=== PATIENT | male | born 1950 | race Two or more races ===

== ENCOUNTER 2025-01-09 19:45 | Inpatient (IN) | payer MEDICARE, OTHER ==
[~2025-01-09] VITALS: Ht 162.6 cm; Wt 72.7 kg
[~2025-01-09 19:45] MED LIST: ASPI-1450 PO; ATOR20TA65 PO; LEVE-71 PO; LEVO-72 PO
[2025-01-09 20:27] LABS: BASOPHILS % (AUTO) 0.6 % (0.0-2.0); EOSINOPHILS % (AUTO) 3.2 % (1.0-6.0); HEMATOCRIT 40.7 % (41-53); HEMOGLOBIN 13.8 g/dL (13.5-17.5); LYMPHOCYTES # (AUTO) 1.8 K/uL (1.0-4.8); LYMPHOCYTES % (AUTO) 25.5 % (22.0-44.0); MEAN CORPUSCULAR HEMOGLOBIN 30.6 pg (26.0-34.0); MEAN CORPUSCULAR VOLUME 90 fL (80-100); MONOCYTES # (AUTO) 0.4 K/uL (0.1-1.0); MONOCYTES % (AUTO) 5.7 % (2.0-9.0); NEUTROPHILS # (AUTO) 4.7 K/uL (1.8-7.7); PLATELET COUNT (AUTO) 124 K/uL (150-450); RED BLOOD CELL COUNT(AUTO) 4.52 MIL/uL (4.50-5.90); RED CELL DISTRIBUTION WIDTH 14.5 % (11.5-14.5); WHITE BLOOD COUNT (AUTO) 7.2 K/uL (4.5-11.0)
[2025-01-09] MEDS: SODIUM CHLORIDE 0.9% 1,000 ML IV ONE (20:34)
[2025-01-09] MEDS ORDERED: INSU100I26 SQ (20:36)
[2025-01-09] MEDS ORDERED: DULA0.75 SQ (20:36)
[2025-01-09] MEDS ORDERED: TAMS0.4C94 PO (20:36)
[2025-01-09] MEDS ORDERED: METF-446 PO (20:36)
[2025-01-09] MEDS ORDERED: CHOL200059 PO (20:36)
[2025-01-09] MEDS ORDERED: CARV25TA32 PO (20:36)
[2025-01-09] MEDS ORDERED: FINA5TAB41 PO (20:36)
[2025-01-09 20:37] LABS: ANION GAP 8 mmol/L (8-16); CALCIUM, TOTAL 8.9 mg/dL (8.8-10.5); CARBON DIOXIDE 29 mmol/L (22-29); CHLORIDE 108 mmol/L (98-107); CREATININE 0.92 mg/dL (0.60-1.30); GLOMERULAR FILTR. RATE CALC > 60 mL/min (>60); GLUCOSE,RANDOM 91 mg/dL (70-110); POTASSIUM 4.3 mmol/L (3.5-5.1); SODIUM SERUM 145 mmol/L (136-145); UREA NITROGEN, BLOOD 17 mg/dL (7-18)
[2025-01-09 20:41] LABS: ALBUMIN 3.3 g/dL (3.4-5.0); BILIRUBIN,DIRECT 0.1 mg/dL (0.00-0.20); BILIRUBIN,TOTAL 0.3 mg/dL (0.1-1.0); TOTAL PROTEIN, SERUM 6.6 g/dL (6.4-8.2)
[2025-01-09 20:46] LABS: CREATINE KINASE, TOTAL ONLY 37 U/L (39-308)
[2025-01-09 20:47] LABS: TROPONIN I-HIGH SENSITIVITY 4 ng/L (<76)
[2025-01-09 20:50] LABS: LACTIC ACID 2.4 mmol/L (0.4-2.0)
[2025-01-09] MEDS: SODIUM CHLORIDE 0.9% 1,450 ML IV ONE (21:24)
[2025-01-09] MEDS: CEFEPIME HCL 2 GM in DEXTROSE 5%-WATER 50 ML IV ONE (21:25)
[2025-01-09] MEDS: VANCOMYCIN 1.5 GM/WATER(PEG) 300 ML IV ONE (21:32)
[2025-01-09] MEDS: DEXTROSE 50%-WATER 25 GM/50 ML SYRINGE IVP ONE (21:49)
[2025-01-09] MEDS ORDERED: ACETAMINOPHEN 325 MG TABLET PO PRN (22:00)
[2025-01-09] MEDS ORDERED: ALBUTEROL SULFATE 2.5 MG/0.5 ML NEB SOLUTION NEB PRN (22:00)
[2025-01-09] MEDS ORDERED: IPRATROPIUM BROMIDE 0.5 MG/2.5 ML NEB SOLUTION NEB PRN (22:00)
[2025-01-09] MEDS ORDERED: ONDANSETRON HCL 4 MG/2 ML VIAL IVP PRN (22:00)
[2025-01-09 22:27] LABS: APPEARANCE,URINE CLEAR (CLEAR); BILIRUBIN,URINE NEGATIVE (NEGATIVE); COLOR,URINE LIGHT YELLOW (YELLOW); GLUCOSE, URINE (UA) TRACE mg/dL (NEGATIVE); KETONES,URINE NEGATIVE (NEGATIVE); LEUKOCYTE ESTERASE ,URINE MODERATE (NEGATIVE); NITRATE,URINE POSITIVE (NEGATIVE); OCCULT BLOOD,URINE NEGATIVE (NEGATIVE); PH,URINE 5.5 (5.0-8.0); PH,URINE DRUG SCREEN 5.5 (5.0-8.0); PROTEIN,URINE NEGATIVE (NEGATIVE); UROBILINOGEN,URINE <=1.0 mg/dL (<=1.0)
[2025-01-09 22:33] LABS: ALCOHOL, URINE DRUG SCREEN NEGATIVE (NEGATIVE); AMPHET/METH SCREEN,URINE NEGATIVE (NEGATIVE); BARBITURATE SCREEN, URINE NEGATIVE (NEGATIVE); BENZODIAZEPINES SCREEN,URINE NEGATIVE (NEGATIVE); CANNABINOID SCREEN,URINE NEGATIVE (NEGATIVE); COCAINE SCREEN,URINE NEGATIVE (NEGATIVE); METHADONE SCREEN, URINE NEGATIVE (NEGATIVE); OPIATE SCREEN,URINE NEGATIVE (NEGATIVE); PHENCYCLIDINE SCREEN,URINE NEGATIVE (NEGATIVE)
[2025-01-09 22:46] LABS: RBC,URINE 0-2 /HPF (0-2)
[2025-01-09 22:47] LABS: BACTERIA,URINE Rare /HPF (None Seen); SQUAMOUS EPITHELIAL CELL,UR Rare /LPF (None Seen)
[2025-01-09] MEDS ORDERED: IOHEXOL 350 MG/ML 100 ML VIAL ONE (22:51)
[2025-01-09] MEDS: HEPARIN SODIUM,PORCINE 5,000 UNITS/ML VIAL SQ SCH (23:07)
[2025-01-09] MEDS: SODIUM CHLORIDE 0.9% 500 ML IV ONE (23:25)
[2025-01-10 00:51] LABS: GLUCOMETER DEV NAME(LOC) 5N.2C; GLUCOSE,POINT OF CARE 75 MG/DL (70-110)
[2025-01-10 01:23] VITALS: BP 102/62; PULSE 56; RESP 19; TEMP 98.1; O2SAT 100
[2025-01-10 02:50] LABS: TROPONIN I-HIGH SENSITIVITY 5 ng/L (<76)
[2025-01-10 03:54] VITALS: BP 99/60; PULSE 56; RESP 18; TEMP 98.4; O2SAT 99
[2025-01-10] MEDS: DEXTROSE 5%-LACTATED RINGERS 1,000 ML IV ONE ×2 (06:05→13:05)
[2025-01-10 06:30] LABS: GLUCOMETER DEV NAME(LOC) 5N.2C; GLUCOSE,POINT OF CARE 44 MG/DL (70-110)
[2025-01-10 07:06] LABS: GLUCOMETER DEV NAME(LOC) 5N.2C; GLUCOSE,POINT OF CARE 160 MG/DL (70-110)
[2025-01-10 07:49] VITALS: BP 99/59; PULSE 57; RESP 18; TEMP 98; O2SAT 97
[2025-01-10 08:12] LABS: BASOPHILS % (AUTO) 0.3 % (0.0-2.0); EOSINOPHILS % (AUTO) 3.6 % (1.0-6.0); HEMATOCRIT 37.8 % (41-53); HEMOGLOBIN 12.8 g/dL (13.5-17.5); LYMPHOCYTES # (AUTO) 1.8 K/uL (1.0-4.8); LYMPHOCYTES % (AUTO) 29.8 % (22.0-44.0); MEAN CORPUSCULAR HEMOGLOBIN 30.7 pg (26.0-34.0); MEAN CORPUSCULAR VOLUME 90 fL (80-100); MONOCYTES # (AUTO) 0.4 K/uL (0.1-1.0); MONOCYTES % (AUTO) 5.9 % (2.0-9.0); NEUTROPHILS # (AUTO) 3.7 K/uL (1.8-7.7); NEUTROPHILS % (AUTO) 60.4 % (40.0-70.0); PLATELET COUNT (AUTO) 114 K/uL (150-450); RED BLOOD CELL COUNT(AUTO) 4.18 MIL/uL (4.50-5.90); RED CELL DISTRIBUTION WIDTH 14.4 % (11.5-14.5); WHITE BLOOD COUNT (AUTO) 6.2 K/uL (4.5-11.0)
[2025-01-10 08:25] LABS: ANION GAP 10 mmol/L (8-16); CALCIUM, TOTAL 8.3 mg/dL (8.8-10.5); CARBON DIOXIDE 26 mmol/L (22-29); CHLORIDE 110 mmol/L (98-107); CREATININE 0.85 mg/dL (0.60-1.30); GLOMERULAR FILTR. RATE CALC > 60 mL/min (>60); GLUCOSE,RANDOM 113 mg/dL (70-110); POTASSIUM 4.1 mmol/L (3.5-5.1); SODIUM SERUM 146 mmol/L (136-145); UREA NITROGEN, BLOOD 15 mg/dL (7-18)
[2025-01-10] MEDS: DOCUSATE SODIUM 100 MG CAPSULE PO SCH (08:51)
[2025-01-10 11:38] VITALS: BP 97/61; PULSE 56; RESP 18; TEMP 98.3; O2SAT 98
[2025-01-10] MEDS ORDERED: DEXTROSE 50%-WATER 25 GM/50 ML SYRINGE IVP PRN (12:30)
[2025-01-10] MEDS: CefTRIAXone SODIUM 2 GM in DEXTROSE 5%-WATER 50 ML IV SCH (12:57)
[2025-01-10] MEDS: INSULIN LISPRO 100 UNITS/ML SQ PRN (13:03)
[2025-01-10 15:58] VITALS: BP 122/64; PULSE 55; RESP 18; TEMP 97.9; O2SAT 96
[2025-01-10 18:21] LABS: GLUCOMETER DEV NAME(LOC) 5N.2C; GLUCOSE,POINT OF CARE 112 MG/DL (70-110)
[2025-01-10 18:21] LABS: GLUCOMETER DEV NAME(LOC) 5N.2C; GLUCOSE,POINT OF CARE 143 MG/DL (70-110)
[2025-01-11] VITALS (7 sets, daily range): BP systolic 102–127; BP diastolic 59–69; PULSE 51–63; RESP 18–19; TEMP 97.8–98.6; O2SAT 97–99
[2025-01-11 03:01] LABS: GLUCOMETER DEV NAME(LOC) 5N.2C; GLUCOSE,POINT OF CARE 131 MG/DL (70-110)
[2025-01-11] MEDS: DEXTROSE 50%-WATER 25 GM/50 ML SYRINGE IVP PRN (05:50)
[2025-01-11 06:35] LABS: GLUCOMETER DEV NAME(LOC) 5S.2D; GLUCOSE,POINT OF CARE 47 MG/DL (70-110)
[2025-01-11 07:06] LABS: GLUCOMETER DEV NAME(LOC) 5N.2C; GLUCOSE,POINT OF CARE 169 MG/DL (70-110)
[2025-01-11 07:23] LABS: BASOPHILS % (AUTO) 0.2 % (0.0-2.0); EOSINOPHILS % (AUTO) 4.8 % (1.0-6.0); HEMOGLOBIN 13.3 g/dL (13.5-17.5); LYMPHOCYTES # (AUTO) 1.4 K/uL (1.0-4.8); LYMPHOCYTES % (AUTO) 30.1 % (22.0-44.0); MEAN CORPUSCULAR HEMOGLOBIN 30.5 pg (26.0-34.0); MEAN CORPUSCULAR HGB CONC 34.1 G/dL (31.0-37.0); MEAN CORPUSCULAR VOLUME 90 fL (80-100); MONOCYTES # (AUTO) 0.3 K/uL (0.1-1.0); MONOCYTES % (AUTO) 7.3 % (2.0-9.0); NEUTROPHILS # (AUTO) 2.6 K/uL (1.8-7.7); NEUTROPHILS % (AUTO) 57.6 % (40.0-70.0); PLATELET COUNT (AUTO) 91 K/uL (150-450); RED BLOOD CELL COUNT(AUTO) 4.36 MIL/uL (4.50-5.90); RED CELL DISTRIBUTION WIDTH 14.3 % (11.5-14.5); WHITE BLOOD COUNT (AUTO) 4.6 K/uL (4.5-11.0)
[2025-01-11 07:32] LABS: ANION GAP 9 mmol/L (8-16); CALCIUM, TOTAL 8.9 mg/dL (8.8-10.5); CARBON DIOXIDE 29 mmol/L (22-29); CHLORIDE 111 mmol/L (98-107); CREATININE 0.73 mg/dL (0.60-1.30); GLOMERULAR FILTR. RATE CALC > 60 mL/min (>60); POTASSIUM 3.9 mmol/L (3.5-5.1); SODIUM SERUM 149 mmol/L (136-145); UREA NITROGEN, BLOOD 12 mg/dL (7-18)
[2025-01-11 07:38] LABS: GLUCOSE,RANDOM 37 mg/dL (70-110)
[2025-01-11 17:10] LABS: GLUCOMETER DEV NAME(LOC) 5N.2C; GLUCOSE,POINT OF CARE 215 MG/DL (70-110)
[2025-01-11 17:10] LABS: GLUCOMETER DEV NAME(LOC) 5N.2C; GLUCOSE,POINT OF CARE 190 MG/DL (70-110)
[2025-01-11] MEDS: LevETIRAcetam 500 MG TABLET PO SCH (20:33)
[2025-01-11] MEDS: ATORVASTATIN CALCIUM 20 MG TABLET PO SCH (20:33)
[2025-01-11 22:01] LABS: GLUCOMETER DEV NAME(LOC) 5S.2D; GLUCOSE,POINT OF CARE 169 MG/DL (70-110)
[2025-01-11 22:01] LABS: GLUCOMETER DEV NAME(LOC) 5N.2C; GLUCOSE,POINT OF CARE 191 MG/DL (70-110)
[2025-01-12 00:26] VITALS: BP 108/61; PULSE 60; RESP 18; TEMP 97.9; O2SAT 98
[2025-01-12 04:03] VITALS: BP 103/68; PULSE 60; RESP 18; TEMP 98; O2SAT 98
[2025-01-12 07:00] LABS: GLUCOMETER DEV NAME(LOC) 5N.2C; GLUCOSE,POINT OF CARE 107 MG/DL (70-110)
[2025-01-12 07:38] LABS: BASOPHILS % (AUTO) 0.2 % (0.0-2.0); EOSINOPHILS % (AUTO) 5.2 % (1.0-6.0); HEMATOCRIT 37.5 % (41-53); HEMOGLOBIN 12.8 g/dL (13.5-17.5); LYMPHOCYTES # (AUTO) 1.3 K/uL (1.0-4.8); LYMPHOCYTES % (AUTO) 27.4 % (22.0-44.0); MEAN CORPUSCULAR HEMOGLOBIN 30.7 pg (26.0-34.0); MEAN CORPUSCULAR HGB CONC 34.2 G/dL (31.0-37.0); MEAN CORPUSCULAR VOLUME 90 fL (80-100); MONOCYTES # (AUTO) 0.3 K/uL (0.1-1.0); NEUTROPHILS # (AUTO) 2.8 K/uL (1.8-7.7); NEUTROPHILS % (AUTO) 60.2 % (40.0-70.0); PLATELET COUNT (AUTO) 95 K/uL (150-450); RED BLOOD CELL COUNT(AUTO) 4.18 MIL/uL (4.50-5.90); RED CELL DISTRIBUTION WIDTH 14.3 % (11.5-14.5); WHITE BLOOD COUNT (AUTO) 4.7 K/uL (4.5-11.0)
[2025-01-12 07:40] LABS: ANION GAP 7 mmol/L (8-16); CALCIUM, TOTAL 8.9 mg/dL (8.8-10.5); CARBON DIOXIDE 29 mmol/L (22-29); CHLORIDE 109 mmol/L (98-107); CREATININE 0.78 mg/dL (0.60-1.30); GLOMERULAR FILTR. RATE CALC > 60 mL/min (>60); GLUCOSE,RANDOM 101 mg/dL (70-110); POTASSIUM 3.9 mmol/L (3.5-5.1); SODIUM SERUM 145 mmol/L (136-145); UREA NITROGEN, BLOOD 13 mg/dL (7-18)
[2025-01-12 08:00] VITALS: BP 113/66; PULSE 60; RESP 18; TEMP 98; O2SAT 98
[2025-01-12] MEDS: TAMSULOSIN HCL 0.4 MG CAPSULE PO SCH (08:33)
[2025-01-12] MEDS: FINASTERIDE 5 MG TABLET PO SCH (08:34)
[2025-01-12] MEDS: ASPIRIN 81 MG CHEWABLE TABLET PO SCH (08:35)
[2025-01-12] MEDS ORDERED: FINA-27 PO (11:33)
[2025-01-12] MEDS ORDERED: METF-1211 PO (11:33)
[2025-01-12] MEDS ORDERED: TAMS0.4C94 PO (11:33)
[2025-01-12 12:00] VITALS: BP 102/63; PULSE 61; RESP 18; TEMP 97.9; O2SAT 96
[2025-01-12 12:40] LABS: GLUCOMETER DEV NAME(LOC) 5N.2C; GLUCOSE,POINT OF CARE 151 MG/DL (70-110)
[2025-01-12 16:00] VITALS: BP 115/60; PULSE 63; RESP 18; TEMP 97.7; O2SAT 97
[2025-01-12 17:21] LABS: GLUCOMETER DEV NAME(LOC) 5N.2C; GLUCOSE,POINT OF CARE 127 MG/DL (70-110)
[2025-01-12 20:00] VITALS: BP 115/72; PULSE 63; RESP 18; TEMP 98; O2SAT 97
[2025-01-12 22:42] LABS: GLUCOMETER DEV NAME(LOC) 5N.2C; GLUCOSE,POINT OF CARE 241 MG/DL (70-110)
[2025-01-12 23:00] LABS: GLUCOMETER DEV NAME(LOC) 5N.2C; GLUCOSE,POINT OF CARE 125 MG/DL (70-110)
[2025-01-13] VITALS: BP 101/49; PULSE 61; RESP 18; TEMP 97; O2SAT 98
[2025-01-13 04:00] VITALS: BP 94/53; PULSE 55; RESP 18; TEMP 97.8; O2SAT 98
[2025-01-13 06:53] LABS: BASOPHILS % (AUTO) 0.6 % (0.0-2.0); HEMATOCRIT 37.9 % (41-53); HEMOGLOBIN 13.1 g/dL (13.5-17.5); LYMPHOCYTES # (AUTO) 1.3 K/uL (1.0-4.8); LYMPHOCYTES % (AUTO) 31.7 % (22.0-44.0); MEAN CORPUSCULAR HEMOGLOBIN 30.9 pg (26.0-34.0); MEAN CORPUSCULAR HGB CONC 34.5 G/dL (31.0-37.0); MEAN CORPUSCULAR VOLUME 90 fL (80-100); MONOCYTES # (AUTO) 0.3 K/uL (0.1-1.0); MONOCYTES % (AUTO) 6.3 % (2.0-9.0); NEUTROPHILS # (AUTO) 2.2 K/uL (1.8-7.7); NEUTROPHILS % (AUTO) 55.4 % (40.0-70.0); PLATELET COUNT (AUTO) 93 K/uL (150-450); RED BLOOD CELL COUNT(AUTO) 4.23 MIL/uL (4.50-5.90)
[2025-01-13 07:00] LABS: GLUCOMETER DEV NAME(LOC) 5S.2D; GLUCOSE,POINT OF CARE 129 MG/DL (70-110)
[2025-01-13 07:04] LABS: ANION GAP 6 mmol/L (8-16); CALCIUM, TOTAL 8.6 mg/dL (8.8-10.5); CARBON DIOXIDE 27 mmol/L (22-29); CHLORIDE 108 mmol/L (98-107); CREATININE 0.82 mg/dL (0.60-1.30); GLOMERULAR FILTR. RATE CALC > 60 mL/min (>60); GLUCOSE,RANDOM 125 mg/dL (70-110); POTASSIUM 3.9 mmol/L (3.5-5.1); SODIUM SERUM 141 mmol/L (136-145); UREA NITROGEN, BLOOD 15 mg/dL (7-18)
[2025-01-13 07:33] VITALS: BP 113/66; PULSE 58; RESP 18; TEMP 98; O2SAT 98
[2025-01-13 11:31] VITALS: BP 116/70; PULSE 61; RESP 18; TEMP 98.2; O2SAT 98
== END 2025-01-13 12:35 | disposition home health service (06) | DRG 637 ==
LOC: EMS 19:45 → EDH 21:57 → 6N 23:40 → 5N 23:45
PROVIDERS: ADMIT Internal Medicine; ATTEND Internal Medicine
DX: E11.649 Type 2 diabetes mellitus with hypoglycemia without coma (principal); G93.41 Metabolic encephalopathy; E87.0 Hyperosmolality and hypernatremia; N39.0 Urinary tract infection, site not specified; E87.20 Acidosis, unspecified; I95.9 Hypotension, unspecified; F17.200 Nicotine dependence, unspecified, uncomplicated; G40.909 Epilepsy, unspecified, not intractable, without status epilepticus; N40.0 Benign prostatic hyperplasia without lower urinary tract symptoms; Z79.82 Long term (current) use of aspirin; Z79.84 Long term (current) use of oral hypoglycemic drugs; Z79.899 Other long term (current) drug therapy; Z86.73 Personal history of transient ischemic attack (TIA), and cerebral infarction without residual deficits; Z88.0 Allergy status to penicillin
CPT/HCPCS: 70450; 71045; 71275; 80048; 80076; 80307; 81001; 82140; 82550; 82962; 83605; 83735; 84484; 85025; 87040; 87086; 93005; 97162; 97530; 99291; J0692; J0696; J1644; J7040; J7060; 36415-L1; 36415-TC

== ENCOUNTER 2025-01-23 05:12 | Emergency (ER) | payer MEDICARE, OTHER ==
[~2025-01-23] VITALS: Ht 165.1 cm; Wt 65.9 kg
[~2025-01-23 05:12] MED LIST changes: +CHOL200059 PO; +FINA-27 PO; +METF-1211 PO; +TAMS0.4C94 PO
[2025-01-23 05:26] VITALS: BP 131/72; PULSE 55; RESP 16; TEMP 98; O2SAT 98
[2025-01-23] MEDS: ACETAMINOPHEN 500 MG TABLET PO ONE (05:36)
[2025-01-23 05:41] LABS: BASOPHILS % (AUTO) 0.5 % (0.0-2.0); HEMATOCRIT 39.3 % (41-53); HEMOGLOBIN 13.7 g/dL (13.5-17.5); LYMPHOCYTES # (AUTO) 1.8 K/uL (1.0-4.8); LYMPHOCYTES % (AUTO) 25.8 % (22.0-44.0); MEAN CORPUSCULAR HEMOGLOBIN 31.3 pg (26.0-34.0); MEAN CORPUSCULAR HGB CONC 34.9 G/dL (31.0-37.0); MEAN CORPUSCULAR VOLUME 90 fL (80-100); MONOCYTES # (AUTO) 0.4 K/uL (0.1-1.0); MONOCYTES % (AUTO) 5.4 % (2.0-9.0); NEUTROPHILS # (AUTO) 4.4 K/uL (1.8-7.7); NEUTROPHILS % (AUTO) 63.3 % (40.0-70.0); PLATELET COUNT (AUTO) 129 K/uL (150-450); RED BLOOD CELL COUNT(AUTO) 4.39 MIL/uL (4.50-5.90); RED CELL DISTRIBUTION WIDTH 14.2 % (11.5-14.5); WHITE BLOOD COUNT (AUTO) 6.9 K/uL (4.5-11.0)
[2025-01-23 05:49] LABS: ANION GAP 6 mmol/L (8-16); CALCIUM, TOTAL 8.2 mg/dL (8.8-10.5); CARBON DIOXIDE 29 mmol/L (22-29); CHLORIDE 108 mmol/L (98-107); CREATININE 0.93 mg/dL (0.60-1.30); GLOMERULAR FILTR. RATE CALC > 60 mL/min (>60); GLUCOSE,RANDOM 132 mg/dL (70-110); POTASSIUM 3.6 mmol/L (3.5-5.1); SODIUM SERUM 143 mmol/L (136-145); UREA NITROGEN, BLOOD 14 mg/dL (7-18)
[2025-01-23 05:57] LABS: TROPONIN I-HIGH SENSITIVITY 4 ng/L (<76)
[2025-01-23 07:09] LABS: TROPONIN I-HIGH SENSITIVITY 4 ng/L (<76)
[2025-01-23] MEDS ORDERED: NITR0.3T12 SL (07:18)
== END 2025-01-23 07:39 | disposition home or self-care (01) ==
LOC: EMS 05:12
DX: R07.9 Chest pain, unspecified (principal); F41.9 Anxiety disorder, unspecified; E11.649 Type 2 diabetes mellitus with hypoglycemia without coma; F17.210 Nicotine dependence, cigarettes, uncomplicated; Z88.0 Allergy status to penicillin; Z79.82 Long term (current) use of aspirin; Z79.84 Long term (current) use of oral hypoglycemic drugs; Z79.899 Other long term (current) drug therapy
CPT/HCPCS: 71045; 80048; 82962; 84484; 85025; 93005; 99285; 36415-L1; 36415-TC

== ENCOUNTER 2025-02-07 19:02 | Emergency (ER) | payer MEDICARE, OTHER ==
[~2025-02-07] VITALS: Ht 165.1 cm; Wt 68.2 kg
[~2025-02-07 19:02] MED LIST changes: -LEVO-72 PO
[2025-02-07 19:09] VITALS: TEMP 98.6
[2025-02-07 19:31] LABS: BASOPHILS % (AUTO) 0.4 % (0.0-2.0); EOSINOPHILS % (AUTO) 3.6 % (1.0-6.0); HEMATOCRIT 42.9 % (41-53); HEMOGLOBIN 14.7 g/dL (13.5-17.5); LYMPHOCYTES # (AUTO) 1.8 K/uL (1.0-4.8); LYMPHOCYTES % (AUTO) 19.3 % (22.0-44.0); MEAN CORPUSCULAR HEMOGLOBIN 30.7 pg (26.0-34.0); MEAN CORPUSCULAR HGB CONC 34.1 G/dL (31.0-37.0); MEAN CORPUSCULAR VOLUME 90 fL (80-100); MONOCYTES # (AUTO) 0.5 K/uL (0.1-1.0); NEUTROPHILS # (AUTO) 6.7 K/uL (1.8-7.7); NEUTROPHILS % (AUTO) 71.7 % (40.0-70.0); PLATELET COUNT (AUTO) 136 K/uL (150-450); RED BLOOD CELL COUNT(AUTO) 4.78 MIL/uL (4.50-5.90); RED CELL DISTRIBUTION WIDTH 13.8 % (11.5-14.5); WHITE BLOOD COUNT (AUTO) 9.3 K/uL (4.5-11.0)
[2025-02-07 19:41] VITALS: BP 119/64; PULSE 67; RESP 18; O2SAT 99
[2025-02-07 19:43] LABS: CARBON DIOXIDE 27 mmol/L (22-29); CHLORIDE 106 mmol/L (98-107); POTASSIUM 3.9 mmol/L (3.5-5.1); SODIUM SERUM 141 mmol/L (136-145)
[2025-02-07 19:44] LABS: ANION GAP 8 mmol/L (8-16); CALCIUM, TOTAL 9.3 mg/dL (8.8-10.5); CREATININE 0.98 mg/dL (0.60-1.30); GLOMERULAR FILTR. RATE CALC > 60 mL/min (>60); GLUCOSE,RANDOM 92 mg/dL (70-110); UREA NITROGEN, BLOOD 14 mg/dL (7-18)
[2025-02-07 20:31] LABS: GLUCOMETER DEV NAME(LOC) ERT.6; GLUCOSE,POINT OF CARE 138 MG/DL (70-110)
[2025-02-07] MEDS ORDERED: [UNRECOGNIZED DRUG - CODE] PO (20:50)
== END 2025-02-07 20:33 | disposition home or self-care (01) ==
LOC: EMS 19:02
DX: E11.649 Type 2 diabetes mellitus with hypoglycemia without coma (principal); F17.210 Nicotine dependence, cigarettes, uncomplicated; Z88.0 Allergy status to penicillin; Z79.82 Long term (current) use of aspirin; Z79.84 Long term (current) use of oral hypoglycemic drugs; Z79.899 Other long term (current) drug therapy
CPT/HCPCS: 80048; 82962; 85025; 99283

== ENCOUNTER 2025-02-22 08:53 | Inpatient (IN) | payer MEDICARE, OTHER ==
[~2025-02-22] VITALS: Ht 165.1 cm; Wt 77.8 kg
[~2025-02-22 08:53] MED LIST changes: +[UNRECOGNIZED DRUG - CODE] PO
[2025-02-22 09:20] LABS: GLUCOMETER DEV NAME(LOC) ER.7; GLUCOSE,POINT OF CARE 66 MG/DL (70-110)
[2025-02-22 09:27] LABS: BASOPHILS % (AUTO) 0.3 % (0.0-2.0); EOSINOPHILS % (AUTO) 2.8 % (1.0-6.0); HEMATOCRIT 42.7 % (41-53); HEMOGLOBIN 14.8 g/dL (13.5-17.5); LYMPHOCYTES # (AUTO) 0.8 K/uL (1.0-4.8); LYMPHOCYTES % (AUTO) 13.2 % (22.0-44.0); MEAN CORPUSCULAR HEMOGLOBIN 30.6 pg (26.0-34.0); MEAN CORPUSCULAR HGB CONC 34.7 G/dL (31.0-37.0); MEAN CORPUSCULAR VOLUME 88 fL (80-100); MONOCYTES # (AUTO) 0.2 K/uL (0.1-1.0); MONOCYTES % (AUTO) 3.7 % (2.0-9.0); NEUTROPHILS # (AUTO) 4.6 K/uL (1.8-7.7); PLATELET COUNT (AUTO) 117 K/uL (150-450); RED BLOOD CELL COUNT(AUTO) 4.84 MIL/uL (4.50-5.90); RED CELL DISTRIBUTION WIDTH 13.9 % (11.5-14.5); WHITE BLOOD COUNT (AUTO) 5.7 K/uL (4.5-11.0)
[2025-02-22 09:37] LABS: ANION GAP 6 mmol/L (8-16); CALCIUM, TOTAL 8.4 mg/dL (8.8-10.5); CARBON DIOXIDE 30 mmol/L (22-29); CHLORIDE 110 mmol/L (98-107); CREATININE 0.94 mg/dL (0.60-1.30); GLOMERULAR FILTR. RATE CALC > 60 mL/min (>60); GLUCOSE,RANDOM 136 mg/dL (70-110); POTASSIUM 3.8 mmol/L (3.5-5.1); SODIUM SERUM 146 mmol/L (136-145); UREA NITROGEN, BLOOD 15 mg/dL (7-18)
[2025-02-22 09:40] LABS: ALCOHOL, BLOOD (SERUM) < 3 mg/dL (0-10)
[2025-02-22 09:50] LABS: GLUCOMETER DEV NAME(LOC) ER.7; GLUCOSE,POINT OF CARE 81 MG/DL (70-110)
[2025-02-22 10:09] LABS: TROPONIN I-HIGH SENSITIVITY 7 ng/L (<76)
[2025-02-22 10:25] LABS: APPEARANCE,URINE CLEAR (CLEAR); BILIRUBIN,URINE NEGATIVE (NEGATIVE); COLOR,URINE YELLOW (YELLOW); GLUCOSE, URINE (UA) 150-200 mg/dL (NEGATIVE); KETONES,URINE NEGATIVE (NEGATIVE); LEUKOCYTE ESTERASE ,URINE MODERATE (NEGATIVE); NITRATE,URINE NEGATIVE (NEGATIVE); OCCULT BLOOD,URINE NEGATIVE (NEGATIVE); PH,URINE 5.5 (5.0-8.0); PROTEIN,URINE TRACE mg/dL (NEGATIVE); SPECIFIC GRAVITIY, URINE 1.019 (1.003-1.030); UROBILINOGEN,URINE <=1.0 mg/dL (<=1.0)
[2025-02-22] MEDS: DEXTROSE 5%-0.9% SODIUM CHL 1,000 ML IV ONE (10:25)
[2025-02-22 10:37] LABS: BACTERIA,URINE Many /HPF (None Seen); RBC,URINE None Seen /HPF (0-2); SQUAMOUS EPITHELIAL CELL,UR Few /LPF (None Seen)
[2025-02-22 11:36] LABS: GLUCOMETER DEV NAME(LOC) ER.7; GLUCOSE,POINT OF CARE 107 MG/DL (70-110)
[2025-02-22] MEDS ORDERED: ONDANSETRON HCL 4 MG/2 ML VIAL IVP PRN (12:00)
[2025-02-22] MEDS ORDERED: DEXTROSE 50%-WATER 25 GM/50 ML SYRINGE IVP PRN (12:00)
[2025-02-22] MEDS ORDERED: BISACODYL 10 MG RECTAL RECTAL SUPPOSITORY PR PRN (12:00)
[2025-02-22] MEDS ORDERED: HYDROCODONE/ACETAMINOPHEN 5-325 MG TABLET PO PRN (12:00)
[2025-02-22] MEDS ORDERED: ACETAMINOPHEN 325 MG TABLET PO PRN (12:00)
[2025-02-22] MEDS ORDERED: ZOLPIDEM TARTRATE 5 MG TABLET PO PRN (12:00)
[2025-02-22] MEDS ORDERED: MORPHINE SULFATE 2 MG/ML SYRINGE IVP PRN (12:00)
[2025-02-22] MEDS ORDERED: MAGNESIUM HYDROXIDE SUSPENSION 30 ML UDCUP PO PRN (12:00)
[2025-02-22] MEDS: SODIUM CHLORIDE 77 MEQ in DEXTROSE 10%-WATER 1,000 ML IV ONE (13:42)
[2025-02-22] MEDS: HEPARIN SODIUM,PORCINE 5,000 UNITS/ML VIAL SQ SCH (15:09)
[2025-02-22 15:11] VITALS: BP 105/60; PULSE 61; RESP 19; TEMP 98.3; O2SAT 98
[2025-02-22 17:51] LABS: GLUCOMETER DEV NAME(LOC) 5N.1D; GLUCOSE,POINT OF CARE 156 MG/DL (70-110)
[2025-02-22 19:25] VITALS: BP 110/70; PULSE 71; RESP 18; TEMP 98.4; O2SAT 99
[2025-02-22] MEDS: LevETIRAcetam 500 MG TABLET PO SCH (20:21)
[2025-02-22] MEDS: ATORVASTATIN CALCIUM 20 MG TABLET PO SCH (20:21)
[2025-02-22] MEDS: DOCUSATE SODIUM 100 MG CAPSULE PO SCH (20:22)
[2025-02-22 23:31] VITALS: BP 107/58; PULSE 63; RESP 18; TEMP 98.1; O2SAT 99
[2025-02-23 01:06] LABS: GLUCOMETER DEV NAME(LOC) 5N.1D; GLUCOSE,POINT OF CARE 198 MG/DL (70-110)
[2025-02-23 03:18] VITALS: BP 108/70; PULSE 62; RESP 18; TEMP 98.2; O2SAT 99
[2025-02-23 06:23] LABS: HEMOGLOBIN A1C 5.2 % (3.8-5.6)
[2025-02-23 06:33] LABS: ANION GAP 11 mmol/L (8-16); CALCIUM, TOTAL 8.7 mg/dL (8.8-10.5); CARBON DIOXIDE 25 mmol/L (22-29); CHLORIDE 111 mmol/L (98-107); CREATININE 0.92 mg/dL (0.60-1.30); GLOMERULAR FILTR. RATE CALC > 60 mL/min (>60); GLUCOSE,RANDOM 103 mg/dL (70-110); POTASSIUM 3.8 mmol/L (3.5-5.1); SODIUM SERUM 147 mmol/L (136-145); UREA NITROGEN, BLOOD 23 mg/dL (7-18)
[2025-02-23 08:11] VITALS: BP 117/61; PULSE 55; RESP 18; TEMP 98.4; O2SAT 98
[2025-02-23] MEDS: FINASTERIDE 5 MG TABLET PO SCH (08:40)
[2025-02-23] MEDS: CHOLECALCIFEROL (VIT D3) 2,000 UNITS [50 MCG] TABLET PO SCH (08:41)
[2025-02-23] MEDS: TAMSULOSIN HCL 0.4 MG CAPSULE PO SCH (08:41)
[2025-02-23] MEDS: PANTOPRAZOLE SODIUM 40 MG DR TABLET PO SCH (08:41)
[2025-02-23] MEDS: ASPIRIN 81 MG CHEWABLE TABLET PO SCH (08:43)
[2025-02-23 08:46] LABS: GLUCOMETER DEV NAME(LOC) 5N.2C; GLUCOSE,POINT OF CARE 217 MG/DL (70-110)
[2025-02-23] MEDS ORDERED: SODIUM CHLORIDE 0.9% 2,000 ML ONE (10:18)
[2025-02-23 11:25] VITALS: BP 102/87; PULSE 77; RESP 17; TEMP 98.8; O2SAT 99
[2025-02-23 13:01] LABS: GLUCOMETER DEV NAME(LOC) 5N.2C; GLUCOSE,POINT OF CARE 110 MG/DL (70-110)
[2025-02-23 15:52] VITALS: BP 119/62; PULSE 53; RESP 18; TEMP 98.1; O2SAT 99
[2025-02-23 20:00] VITALS: BP 113/67; PULSE 58; RESP 18; TEMP 98.2; O2SAT 100
[2025-02-23 20:56] LABS: GLUCOMETER DEV NAME(LOC) 5N.1D; GLUCOSE,POINT OF CARE 98 MG/DL (70-110)
[2025-02-23 21:46] LABS: GLUCOMETER DEV NAME(LOC) 5N.1D; GLUCOSE,POINT OF CARE 135 MG/DL (70-110)
[2025-02-24] VITALS: BP 139/93; PULSE 63; RESP 18; TEMP 97.9; O2SAT 100
[2025-02-24 02:09] VITALS: BP 119/61; PULSE 57; RESP 18; TEMP 97.5; O2SAT 99
[2025-02-24 08:17] VITALS: BP 125/68; PULSE 64; RESP 20; TEMP 97.3; O2SAT 98
[2025-02-24 10:35] LABS: GLUCOMETER DEV NAME(LOC) 6S.2; GLUCOSE,POINT OF CARE 116 MG/DL (70-110)
[2025-02-24] MEDS ORDERED: LEVO-72 PO (11:02)
[2025-02-24 23:45] LABS: GLUCOMETER DEV NAME(LOC) 6N.2B; GLUCOSE,POINT OF CARE 131 MG/DL (70-110)
== END 2025-02-24 15:15 | disposition home or self-care (01) | DRG 637 ==
LOC: EMS 08:54 → EDH 10:19 → 5S 11:52 → 6S 02-24 01:42
PROVIDERS: ADMIT Internal Medicine; ATTEND Internal Medicine
DX: E11.649 Type 2 diabetes mellitus with hypoglycemia without coma (principal); G93.41 Metabolic encephalopathy; N39.0 Urinary tract infection, site not specified; N40.0 Benign prostatic hyperplasia without lower urinary tract symptoms; E78.5 Hyperlipidemia, unspecified; G40.909 Epilepsy, unspecified, not intractable, without status epilepticus; Z79.82 Long term (current) use of aspirin; Z86.73 Personal history of transient ischemic attack (TIA), and cerebral infarction without residual deficits; Z87.891 Personal history of nicotine dependence; Z88.0 Allergy status to penicillin; Z79.899 Other long term (current) drug therapy
CPT/HCPCS: 80048; 81001; 82948; 82962; 83036; 84484; 85025; 87077; 87086; 87186; 93005; 96360; 99285; G0378; G0480; J1644; J2405; J7030; J7042; J7131; 36415-L1; 36415-TC